=== PATIENT | female | born 1980 | race African-American/Black ===

== ENCOUNTER 2016-10-16 18:44 | Emergency (ER) | payer OTHER ==
[~2016-10-16] VITALS: Ht 165.1 cm; Wt 83.2 kg
[2016-10-16 19:12] VITALS: BP 139/87
[2016-10-16] MEDS ORDERED: IBUPROFEN 800 MG TABLET PO ONE (19:15)
== END 2016-10-16 19:25 | disposition home or self-care (01) ==
LOC: EMS 18:46
DX: M25.561 Pain in right knee (principal)
CPT/HCPCS: 99283